=== PATIENT | male | born 1970 | race Asian ===

== ENCOUNTER 2017-11-26 23:08 | Emergency (ER) | payer MEDICARE, MEDICAID ==
[~2017-11-26] VITALS: Ht 160 cm; Wt 63.6 kg
[~2017-11-26 23:08] MED LIST: GABA-530 PO; HYDR-565 PO; LEVO100T PO; METO50TA7 PO; OLAN10TA3 PO; OMEP20CA10 PO; RANI150C4 PO
[2017-11-26 23:26] VITALS: BP 175/115
[2017-11-26 23:51] LABS: CLARITY,URINE CLEAR (Clear); COLOR,URINE YELLOW (Yellow); GLUCOSE, URINE NEGATIVE (Neg); KETONES,URINE NEGATIVE (Neg); LEUKOCYTE ESTERASE ,URINE NEGATIVE (Neg); NITRITES, URINE NEGATIVE (Neg); OCCULT BLOOD,URINE LARGE (Neg); PH,URINE 5.5 (4.8-8.0); PROTEIN,URINE NEGATIVE (Neg); UROBILINOGEN,URINE 0.2 E.U/dL (0.2-1.0)
[2017-11-26 23:52] LABS: UA COLLECTION TYPE CLN CATCH MIDSTREAM
[2017-11-26 23:59] LABS: BACTERIA,URINE NONE SEEN /HPF (Neg); RBC,URINE 50-100 /HPF (0-2); SQUAMOUS EPITHELIAL CELL,UR FEW /LPF (FEW); WBC,URINE 0-4 /HPF (0-4)
[2017-11-27] LABS: MUCUS STRANDS MODERATE /LPF (Neg)
[2017-11-27 01:11] LABS: BASOPHILS % (AUTO) 0.6 % (0-1); EOSINOPHILS # (AUTO) 0.1 X10'3 (0-0.9); EOSINOPHILS % (AUTO) 2.9 % (0-6); HEMATOCRIT 42.4 % (42.0-52.0); HEMOGLOBIN 14.2 g/dl (14.0-17.9); LYMPHOCYTES # (AUTO) 0.7 X10'3 (1.1-4.8); LYMPHOCYTES % (AUTO) 18.7 % (21-51); MEAN CORPUSCULAR HEMOGLOBIN 28.7 PG (27.0-31.0); MEAN CORPUSCULAR HGB CONC 33.5 % (33.0-36.5); MEAN CORPUSCULAR VOLUME 85.9 FL (78-98); MEAN PLATELET VOLUME 8.2 FL (7.4-10.4); MONOCYTES # (AUTO) 0.2 X10'3 (0-0.9); MONOCYTES % (AUTO) 5.9 % (2-12); NEUTROPHILS # (AUTO) 2.9 X10'3 (1.8-7.7); NEUTROPHILS % (AUTO) 71.9 % (42-75); PLATELET COUNT 194 X10'3 (140-440); RED BLOOD COUNT 4.93 X10'6 (4.70-6.10); RED CELL DISTRIBUTION WIDTH 14.1 % (11.5-14.5); WHITE BLOOD COUNT 3.9 X10'3 (4.5-11.0)
[2017-11-27 01:28] LABS: ALANINE AMINOTRANSFERASE 26 U/L (12-78); ALBUMIN 3.2 G/DL (3.4-5.0); ALKALINE PHOSPHATASE 84 IU/L (46-116); ANION GAP 8 (8-16); ASPARTATE AMINO TRANSFERASE 16 U/L (10-37); BILIRUBIN,TOTAL 0.5 MG/DL (0.1-1.0); BLOOD UREA NITROGEN 20 MG/DL (7-18); BUN/CREATININE RATIO 14.3 (5.4-32.0); CALCIUM 8.5 MG/DL (8.5-10.1); CHLORIDE 109 MMOL/L (99-107); ETHANOL < 0.010 GM/DL (0.0-0.010); GLUCOSE 101 MG/DL (70-104); POTASSIUM 3.1 MMOL/L (3.5-5.1); SODIUM 144 MMOL/L (135-145); TOTAL CARBON DIOXIDE 26.7 MMOL/L (24-32); TOTAL PROTEIN 6.5 G/DL (6.4-8.2); eGFR 54 ML/MIN
[2017-11-27 01:44] LABS: URINE AMPHETAMINE SCREEN POSITIVE (Neg); URINE BARBITUATE SCREEN NEGATIVE (Neg); URINE BENZODIAZEPINES SCREEN NEGATIVE (Neg); URINE CANNABINOID SCREEN POSITIVE (Neg); URINE COCAINE SCREEN NEGATIVE (Neg); URINE METHADONE SCREEN NEGATIVE (Neg); URINE OPIATE SCREEN NEGATIVE (Neg); URINE PHENCYCLIDINE SCREEN NEGATIVE (Neg)
== END 2017-11-27 03:03 | disposition home or self-care (01) ==
LOC: ER 23:08
DX: F15.10 Other stimulant abuse, uncomplicated (principal); F12.10 Cannabis abuse, uncomplicated; F41.9 Anxiety disorder, unspecified; I10 Essential (primary) hypertension; K21.9 Gastro-esophageal reflux disease without esophagitis; Z98.890 Other specified postprocedural states; Z88.8 Allergy status to other drugs, medicaments and biological substances; Z79.899 Other long term (current) drug therapy
CPT/HCPCS: 36415; 80053; 80305; 80320; 81001; 85025; 99284

== ENCOUNTER 2018-08-09 14:41 | Inpatient (IN) | payer MEDICARE, MEDICAID | END 2018-08-15 14:35 | disposition home or self-care (01) | LOC: PCU 3S 08-11 10:11 → ER 14:41 → ICU 2S 16:00 | PROC: 4A023N7 Measurement of Cardiac Sampling and Pressure, Left Heart, Percutaneous Approach (ICD-10-PCS; principal; ~2018-08-09) | DX: I21.4 Non-ST elevation (NSTEMI) myocardial infarction (principal); N17.0 Acute kidney failure with tubular necrosis; G93.40 Encephalopathy, unspecified; I16.0 Hypertensive urgency; N18.3 Chronic kidney disease, stage 3 (moderate); F10.20 Alcohol dependence, uncomplicated; F15.90 Other stimulant use, unspecified, uncomplicated ==

== ENCOUNTER 2018-08-25 13:03 | Emergency (ER) | payer MEDICARE, MEDICAID ==
[~2018-08-25] VITALS: Ht 162.6 cm; Wt 68.2 kg
[~2018-08-25 13:03] MED LIST changes: +ASPI81TA52 PO; +ATOR20TA66 PO; +CITA-124 PO; +CLON0.1T20 PO; -GABA-530 PO; +GABA-532 PO; -HYDR-565 PO; +LISI-642 PO; +MAGN400C PO; +NITR0.4T51 SL; +OMEP-50 PO; -OMEP20CA10 PO; -RANI150C4 PO; +RANI150T8 PO; +VITA-268 PO
--- NOTE | 2018-08-25 13:15 | NUR ---
ekg 1307
[2018-08-25 13:16] VITALS: BP 160/98
--- NOTE | 2018-08-25 16:07 | NUR ---
PATIENT LWOBS. ATTEMPTED TO CALL PATIENT TO RETURN TO ER FOR TREATMENT NO ANSWER. VM NOT SET UP
== END 2018-08-25 16:34 | disposition left against medical advice (07) ==
LOC: ER 13:03
DX: R07.89 Other chest pain (principal); Z53.21 Procedure and treatment not carried out due to patient leaving prior to being seen by health care provider
CPT/HCPCS: 93005

== ENCOUNTER 2018-09-06 14:36 | Inpatient (IN) | payer MEDICARE, MEDICAID ==
[~2018-09-06] VITALS: Ht 162.6 cm; Wt 69.0 kg
[2018-09-06] VITALS (11 sets, daily range): BP systolic 131–145; BP diastolic 55–92
[2018-09-06] MEDS ORDERED: pantoprazole IV 80 MG in normal saline 100ml IV soln 100 ML IV ONE (15:40)
[2018-09-06] MEDS ORDERED: pantoprazole 40 MG vial IV ONE (15:43)
[2018-09-06 15:53] LABS: BASOPHILS % (AUTO) 0.9 % (0-1); EOSINOPHILS # (AUTO) 0.1 X10'3 (0-0.9); EOSINOPHILS % (AUTO) 2.3 % (0-6); LYMPHOCYTES # (AUTO) 0.6 X10'3 (1.1-4.8); LYMPHOCYTES % (AUTO) 14.3 % (21-51); MEAN CORPUSCULAR HEMOGLOBIN 27.1 PG (27.0-31.0); MEAN CORPUSCULAR HGB CONC 31.4 g/dL (33.0-36.5); MEAN CORPUSCULAR VOLUME 86.2 FL (78-98); MEAN PLATELET VOLUME 7.7 FL (7.4-10.4); MONOCYTES # (AUTO) 0.3 X10'3 (0-0.9); MONOCYTES % (AUTO) 7.7 % (2-12); NEUTROPHILS # (AUTO) 3.2 X10'3 (1.8-7.7); NEUTROPHILS % (AUTO) 74.8 % (42-75); PLATELET COUNT 220 X10'3 (140-440); RED BLOOD COUNT 1.98 X10'6 (4.70-6.10); RED CELL DISTRIBUTION WIDTH 17.5 % (11.5-14.5); WHITE BLOOD COUNT 4.3 X10'3 (4.5-11.0)
[2018-09-06 15:56] LABS: HEMOGLOBIN 5.3 g/dl (14.0-17.9)
[2018-09-06 15:58] LABS: PROTHROMBIN TIME 9.9 SECONDS (9.0-12.0)
[2018-09-06 16:00] LABS: ALANINE AMINOTRANSFERASE 25 U/L (12-78); ALBUMIN 2.5 G/DL (3.4-5.0); ALBUMIN/GLOBULIN RATIO 0.9 (1.1-1.5); ALKALINE PHOSPHATASE 68 IU/L (46-116); ANION GAP 8 (8-16); ASPARTATE AMINO TRANSFERASE 17 U/L (10-37); BILIRUBIN,TOTAL 0.3 MG/DL (0.1-1.0); BLOOD UREA NITROGEN 22 MG/DL (7-18); CALCIUM 8.3 MG/DL (8.5-10.1); CHLORIDE 108 MMOL/L (99-107); CREATININE 1.57 MG/DL (0.60-1.10); GLUCOSE 111 MG/DL (70-104); POTASSIUM 3.8 MMOL/L (3.5-5.1); SODIUM 141 MMOL/L (135-145); TOTAL CARBON DIOXIDE 24.8 MMOL/L (24-32); TOTAL PROTEIN 5.3 G/DL (6.4-8.2); eGFR 47 ML/MIN
[2018-09-06 16:17] LABS: CLARITY,URINE CLEAR (Clear); COLOR,URINE YELLOW (Yellow); GLUCOSE, URINE NEGATIVE (Neg); KETONES,URINE NEGATIVE (Neg); LEUKOCYTE ESTERASE ,URINE NEGATIVE (Neg); NITRITES, URINE NEGATIVE (Neg); OCCULT BLOOD,URINE NEGATIVE (Neg); PROTEIN,URINE NEGATIVE (Neg); UA COLLECTION TYPE CLN CATCH MIDSTREAM; UROBILINOGEN,URINE 0.2 E.U/dL (0.2-1.0)
[2018-09-06 16:18] LABS: ETHANOL < 0.010 GM/DL (0.0-0.010)
[2018-09-06 16:27] LABS: URINE AMPHETAMINE SCREEN POSITIVE (Neg); URINE BARBITUATE SCREEN NEGATIVE (Neg); URINE BENZODIAZEPINES SCREEN NEGATIVE (Neg); URINE CANNABINOID SCREEN NEGATIVE (Neg); URINE COCAINE SCREEN NEGATIVE (Neg); URINE METHADONE SCREEN NEGATIVE (Neg); URINE OPIATE SCREEN NEGATIVE (Neg); URINE PHENCYCLIDINE SCREEN NEGATIVE (Neg)
[2018-09-06] MEDS: pantoprazole 40MG/NS 100ML BAG 100 ML IV SCH ×2 (16:48→22:19)
[2018-09-06 17:02] LABS: NUCLEATED RED BLOOD CELLS 2 /100WBC (0-0); TOTAL CELLS COUNTED 100
[2018-09-06 17:03] LABS: ANISOCYTOSIS 1+; PLATELET ESTIMATE NORMAL
[2018-09-06 17:04] LABS: HYPOCHROMASIA 2+; POLYCHROMASIA 3+
[2018-09-06] MEDS ORDERED: magnesium 2GM in 50ml NS 50 ML IV PRN (17:10)
[2018-09-06] MEDS ORDERED: bisacodyl 10mg suppository rectal RC PRN (17:10)
[2018-09-06] MEDS ORDERED: potassium Cl 20 mEq SR tablet PO PRN ×2 (17:10)
[2018-09-06] MEDS ORDERED: magnesium 4gm in 100ml NS 100 ML IV PRN (17:10)
[2018-09-06] MEDS ORDERED: acetaminophen 325mg tablet PO PRN (17:10)
[2018-09-06] MEDS ORDERED: magnesium Cl slow-release 64mg tablet PO PRN (17:10)
[2018-09-06] MEDS ORDERED: mag hydrox/Alum hydrox/simeth 30ml oral suspension PO PRN (17:10)
[2018-09-06] MEDS ORDERED: morphine 4 MG/ML inj SYRINge IV PRN ×2 (17:10)
[2018-09-06] MEDS ORDERED: ondansetron/PF 4mg/2ml inj IV PRN (17:10)
[2018-09-06] MEDS ORDERED: HYDROcodone/acetaminophen 10/325mg tab PO PRN (17:10)
[2018-09-06] MEDS ORDERED: HYDROcodone/acetaminophen 5mg/325mg tablet PO PRN (17:10)
[2018-09-06] MEDS ORDERED: magnesium hydroxide 30ml (MOM) UD suspension PO PRN (17:10)
[2018-09-06] MEDS ORDERED: potassium Cl 40MEQ/NS 500ml 500 ML IV PRN ×2 (17:10)
[2018-09-06] MEDS ORDERED: ASPI-611 PO (17:16)
[2018-09-06] MEDS ORDERED: ATOR40TA72 PO (17:18)
[2018-09-06] MEDS ORDERED: CITA20TA27 PO (17:19)
[2018-09-06] MEDS ORDERED: LISI10TA4 PO (17:23)
[2018-09-06] MEDS ORDERED: OLAN10TA19 PO (17:26)
[2018-09-06] MEDS ORDERED: NITR0.4T48 SL (17:27)
--- NOTE | 2018-09-06 18:30 | NUR ---
PT IN GI LAB HAVING PROCEDURE. REPORT GIVEN TO RN ON PCU, PT WILL GO STRAIGHT TO PCU AFTER GI LAB.
[2018-09-06] MEDS ORDERED: fentaNYL/PF 50MCG/1 ML 2ML syringe ONE (18:32)
[2018-09-06] MEDS ORDERED: MIDAZolam 5mg/5ml vial ONE (18:32)
[2018-09-06] MEDS ORDERED: LIDOcaine Viscous 15ml cup ONE (18:33)
[2018-09-06] MEDS ORDERED: pantoprazole 40MG/NS 100ML BAG 100 ML IV SCH (21:00)
--- NOTE | 2018-09-06 21:56 | NUR ---
pt arrived from GI lab. GI lab gave 1 unit [address] per [address] Mahmood to give 2 additional units. GI lab blood paperwork will be on paper. pt was supposed to go to [facility] today at 2 , but ended up here instead. pt wishes to DC straight to rehab if possible. hx of etoh and meth. at bedside who stated pt didnt want to come here but she called EMS anyway. Pt stated it is ok for to be at bedside. voiced her concern and caring over his substance use and wants him to get help.
--- NOTE | 2018-09-06 22:06 | NUR ---
[facility] called back, they still have a bed for him and will try to help get him there from hospital.
[2018-09-06 22:09] LABS: BASOPHILS % (AUTO) 0.7 % (0-1); EOSINOPHILS # (AUTO) 0.1 X10'3 (0-0.9); EOSINOPHILS % (AUTO) 2.4 % (0-6); LYMPHOCYTES % (AUTO) 21.1 % (21-51); MEAN CORPUSCULAR HEMOGLOBIN 26.8 PG (27.0-31.0); MEAN CORPUSCULAR HGB CONC 31.8 g/dL (33.0-36.5); MEAN CORPUSCULAR VOLUME 84.4 FL (78-98); MEAN PLATELET VOLUME 7.4 FL (7.4-10.4); MONOCYTES # (AUTO) 0.4 X10'3 (0-0.9); NEUTROPHILS # (AUTO) 3.2 X10'3 (1.8-7.7); NEUTROPHILS % (AUTO) 67.8 % (42-75); PLATELET COUNT 229 X10'3 (140-440); RED BLOOD COUNT 2.48 X10'6 (4.70-6.10); WHITE BLOOD COUNT 4.7 X10'3 (4.5-11.0)
[2018-09-06 22:17] LABS: HEMOGLOBIN 6.7 g/dl (14.0-17.9)
[2018-09-06] MEDS: potassium Cl 20mEq in NS 1,000 ML IV SCH (22:19)
--- NOTE | 2018-09-06 22:32 | NUR ---
left at pt request. he stated he really wants to go to rehab and would like to go straight from here
[2018-09-06] MEDS: docusate sod 100mg capsule PO SCH (22:45)
[2018-09-07] VITALS (15 sets, daily range): BP systolic 119–158; BP diastolic 67–104
[2018-09-07] MEDS: metoprolol tartrate 25mg tablet PO SCH ×3 (01:42→19:49)
[2018-09-07 02:18] LABS: HEMATOCRIT 23.9 % (42.0-52.0); HEMOGLOBIN 7.7 g/dl (14.0-17.9); MEAN CORPUSCULAR HEMOGLOBIN 27.1 PG (27.0-31.0); MEAN CORPUSCULAR HGB CONC 32.2 g/dL (33.0-36.5); MEAN CORPUSCULAR VOLUME 84.2 FL (78-98); MEAN PLATELET VOLUME 7.4 FL (7.4-10.4); PLATELET COUNT 215 X10'3 (140-440); RED BLOOD COUNT 2.84 X10'6 (4.70-6.10); RED CELL DISTRIBUTION WIDTH 16.1 % (11.5-14.5); WHITE BLOOD COUNT 3.6 X10'3 (4.5-11.0)
[2018-09-07 02:31] LABS: ALANINE AMINOTRANSFERASE 21 U/L (12-78); ALBUMIN 2.4 G/DL (3.4-5.0); ALBUMIN/GLOBULIN RATIO 0.9 (1.1-1.5); ALKALINE PHOSPHATASE 62 IU/L (46-116); ANION GAP 7 (8-16); ASPARTATE AMINO TRANSFERASE 14 U/L (10-37); BILIRUBIN,TOTAL 0.6 MG/DL (0.1-1.0); BLOOD UREA NITROGEN 15 MG/DL (7-18); BUN/CREATININE RATIO 10.3 (5.4-32.0); CALCIUM 7.7 MG/DL (8.5-10.1); CHLORIDE 108 MMOL/L (99-107); CREATININE 1.45 MG/DL (0.60-1.10); GLUCOSE 90 MG/DL (70-104); MAGNESIUM 2.1 MG/DL (1.5-2.4); POTASSIUM 4.2 MMOL/L (3.5-5.1); SODIUM 140 MMOL/L (135-145); TOTAL CARBON DIOXIDE 24.6 MMOL/L (24-32); eGFR 52 ML/MIN
--- NOTE | 2018-09-07 02:50 | NUR ---
h/h up to 7.7/23.9. spoke with Dr. Robles, orders for H/H at 0500 and then decide if 3rd unit needed. no signs active bleed at this time
[2018-09-07] MEDS: pantoprazole 40MG/NS 100ML BAG 100 ML IV SCH ×5 (02:55→23:47)
[2018-09-07] MEDS: potassium Cl 20mEq in NS 1,000 ML IV SCH ×2 (03:09→11:29)
--- NOTE | 2018-09-07 04:48 | NUR ---
pt complains of 8/10 cp. EKG being done
[2018-09-07] MEDS: nitroGLYCERIN 0.4mg SUBLingual tab SL PRN ×3 (04:51→17:11)
--- NOTE | 2018-09-07 05:02 | NUR ---
PT STATED HIS CHEST STILL FEELS TIGHT BUT HE IS BREATHING BETTER AFTER 2 NITRO SL
--- NOTE | 2018-09-07 05:19 | NUR ---
he refused any pain meds. sats ok. notifed
[2018-09-07 06:05] LABS: BASOPHILS % (AUTO) 0.9 % (0-1); EOSINOPHILS # (AUTO) 0.1 X10'3 (0-0.9); EOSINOPHILS % (AUTO) 2.7 % (0-6); HEMATOCRIT 23.1 % (42.0-52.0); HEMOGLOBIN 7.5 g/dl (14.0-17.9); LYMPHOCYTES # (AUTO) 0.8 X10'3 (1.1-4.8); LYMPHOCYTES % (AUTO) 19.5 % (21-51); MEAN CORPUSCULAR HEMOGLOBIN 27.3 PG (27.0-31.0); MEAN CORPUSCULAR HGB CONC 32.3 g/dL (33.0-36.5); MEAN CORPUSCULAR VOLUME 84.3 FL (78-98); MEAN PLATELET VOLUME 7.6 FL (7.4-10.4); MONOCYTES # (AUTO) 0.3 X10'3 (0-0.9); MONOCYTES % (AUTO) 8.2 % (2-12); NEUTROPHILS # (AUTO) 2.8 X10'3 (1.8-7.7); NEUTROPHILS % (AUTO) 68.7 % (42-75); PLATELET COUNT 215 X10'3 (140-440); RED BLOOD COUNT 2.74 X10'6 (4.70-6.10); RED CELL DISTRIBUTION WIDTH 16.5 % (11.5-14.5)
--- NOTE | 2018-09-07 06:15 | NUR ---
Problems reprioritized. Patient report given, questions answered & plan of care reviewed with Monica and Deborah RNs.
--- NOTE | 2018-09-07 06:35 | NUR ---
Patient in room PCU 3027. I have received report from Ghada ROPRE and had the opportunity to ask questions and assume patient care. Patient awake in bed and resting comfortably. In no acute distress. Will continue to monitor.
[2018-09-07 07:08] LABS: TROPONIN I < 0.04 NG/ML (0.0-0.05)
[2018-09-07] MEDS: docusate sod 100mg capsule PO SCH ×2 (08:00→19:48)
[2018-09-07] MEDS: K and/or MAG REPLACEMENT MC SCH (08:00)
--- NOTE | 2018-09-07 08:37 | NUR ---
Patient complains of flank pain and dyspnea. Patient vital signs T: 97.9, HR 67, RR 22, BP 137/92. Stopped blood transfusion and notified Dr. Mahmood. Flushed IV line. Will continue to monitor patient.
[2018-09-07] MEDS ORDERED: furosemide 40mg/4ml inj IV ONE (08:55)
--- NOTE | 2018-09-07 08:58 | NUR ---
New orders from Dr. Mahmood: 40 mg IV lasix once, UA, albuterol 2.5 neb Q4H.
[2018-09-07 09:25] LABS: CLARITY,URINE CLEAR (Clear); COLOR,URINE YELLOW (Yellow); GLUCOSE, URINE NEGATIVE (Neg); KETONES,URINE NEGATIVE (Neg); LEUKOCYTE ESTERASE ,URINE NEGATIVE (Neg); NITRITES, URINE NEGATIVE (Neg); OCCULT BLOOD,URINE NEGATIVE (Neg); PH,URINE 6.5 (4.8-8.0); PROTEIN,URINE NEGATIVE (Neg); UROBILINOGEN,URINE 0.2 E.U/dL (0.2-1.0)
[2018-09-07 09:26] LABS: UA COLLECTION TYPE NON-SPECIFIED
[2018-09-07] MEDS: albuterol 2.5 MG/3 ML nebule NEB SCH ×5 (09:37→23:40)
[2018-09-07 11:42] LABS: BASOPHILS % (AUTO) 0.5 % (0-1); EOSINOPHILS # (AUTO) 0.1 X10'3 (0-0.9); EOSINOPHILS % (AUTO) 1.8 % (0-6); HEMATOCRIT 28.6 % (42.0-52.0); HEMOGLOBIN 9.4 g/dl (14.0-17.9); LYMPHOCYTES # (AUTO) 0.7 X10'3 (1.1-4.8); LYMPHOCYTES % (AUTO) 12.9 % (21-51); MEAN CORPUSCULAR HEMOGLOBIN 27.5 PG (27.0-31.0); MEAN CORPUSCULAR HGB CONC 32.9 g/dL (33.0-36.5); MEAN CORPUSCULAR VOLUME 83.5 FL (78-98); MEAN PLATELET VOLUME 7.6 FL (7.4-10.4); MONOCYTES # (AUTO) 0.4 X10'3 (0-0.9); NEUTROPHILS # (AUTO) 4.1 X10'3 (1.8-7.7); NEUTROPHILS % (AUTO) 77.8 % (42-75); PLATELET COUNT 246 X10'3 (140-440); RED BLOOD COUNT 3.43 X10'6 (4.70-6.10); RED CELL DISTRIBUTION WIDTH 16.6 % (11.5-14.5); WHITE BLOOD COUNT 5.3 X10'3 (4.5-11.0)
--- NOTE | 2018-09-07 12:26 | NUR ---
Paged Dr. Mahmood: PAGER ID: [phone] MESSAGE: Monica RAKEL [phone]. RE: Adalid, [id number]. FYI: Patient Hgb 9.4, Hct 28.6.
[2018-09-07] MEDS ORDERED: olanzapine 10mg tablet PO PRN (12:55)
[2018-09-07] MEDS ORDERED: nitroGLYCERIN 0.4mg SUBLingual tab SL PRN (12:55)
[2018-09-07] MEDS: gabapentin 300mg capsule PO SCH ×2 (14:39→19:48)
--- NOTE | 2018-09-07 17:08 | NUR ---
Paged Dr. Mahmood: PAGER ID: [phone] MESSAGE: Monica Diane [phone]. RE: Adalid, Her [id number]. Patient complains of new onset chest pain 01/14. Administering S/L nitro now. EKG last night was negative. Would you like a repeat EKG ordered? Last troponin 0.04. Thank you Dr. Mahmood
--- NOTE | 2018-09-07 18:30 | NUR ---
Problems reprioritized. Patient report given, questions answered & plan of care reviewed with Arianna ROPER.
[2018-09-07] MEDS: furosemide 20 MG/2 ML vial IV SCH (19:48)
[2018-09-07] MEDS: cloNIDine 0.1 mg tablet PO SCH (19:49)
[2018-09-07] MEDS: nitroGLYCERIN 0.2mg/hour patch TD SCH (19:49)
[2018-09-07 20:50] LABS: BASOPHILS % (AUTO) 0.9 % (0-1); EOSINOPHILS # (AUTO) 0.1 X10'3 (0-0.9); EOSINOPHILS % (AUTO) 2.6 % (0-6); LYMPHOCYTES # (AUTO) 0.7 X10'3 (1.1-4.8); LYMPHOCYTES % (AUTO) 14.9 % (21-51); MEAN CORPUSCULAR HEMOGLOBIN 27.2 PG (27.0-31.0); MEAN CORPUSCULAR HGB CONC 32.3 g/dL (33.0-36.5); MEAN CORPUSCULAR VOLUME 84.2 FL (78-98); MEAN PLATELET VOLUME 7.8 FL (7.4-10.4); MONOCYTES # (AUTO) 0.4 X10'3 (0-0.9); MONOCYTES % (AUTO) 7.4 % (2-12); NEUTROPHILS # (AUTO) 3.6 X10'3 (1.8-7.7); NEUTROPHILS % (AUTO) 74.2 % (42-75); PLATELET COUNT 222 X10'3 (140-440); RED BLOOD COUNT 3.68 X10'6 (4.70-6.10); RED CELL DISTRIBUTION WIDTH 16.5 % (11.5-14.5); WHITE BLOOD COUNT 4.8 X10'3 (4.5-11.0)
[2018-09-08] VITALS (8 sets, daily range): BP systolic 92–115; BP diastolic 57–82
[2018-09-08] MEDS: pantoprazole 40MG/NS 100ML BAG 100 ML IV SCH ×5 (01:00→21:26)
[2018-09-08] MEDS: albuterol 2.5 MG/3 ML nebule NEB SCH ×6 (03:06→23:51)
[2018-09-08 05:43] LABS: EOSINOPHILS # (AUTO) 0.1 X10'3 (0-0.9); EOSINOPHILS % (AUTO) 3.6 % (0-6); HEMATOCRIT 29.7 % (42.0-52.0); HEMOGLOBIN 9.4 g/dl (14.0-17.9); LYMPHOCYTES # (AUTO) 0.6 X10'3 (1.1-4.8); LYMPHOCYTES % (AUTO) 15.8 % (21-51); MEAN CORPUSCULAR HEMOGLOBIN 26.5 PG (27.0-31.0); MEAN CORPUSCULAR HGB CONC 31.7 g/dL (33.0-36.5); MEAN CORPUSCULAR VOLUME 83.5 FL (78-98); MEAN PLATELET VOLUME 7.7 FL (7.4-10.4); MONOCYTES # (AUTO) 0.4 X10'3 (0-0.9); MONOCYTES % (AUTO) 10.5 % (2-12); NEUTROPHILS # (AUTO) 2.5 X10'3 (1.8-7.7); NEUTROPHILS % (AUTO) 69.1 % (42-75); PLATELET COUNT 243 X10'3 (140-440); RED BLOOD COUNT 3.56 X10'6 (4.70-6.10); RED CELL DISTRIBUTION WIDTH 16.2 % (11.5-14.5); WHITE BLOOD COUNT 3.6 X10'3 (4.5-11.0)
[2018-09-08 06:03] LABS: ALANINE AMINOTRANSFERASE 21 U/L (12-78); ALBUMIN 2.7 G/DL (3.4-5.0); ALBUMIN/GLOBULIN RATIO 0.9 (1.1-1.5); ALKALINE PHOSPHATASE 67 IU/L (46-116); ANION GAP 8 (8-16); ASPARTATE AMINO TRANSFERASE 12 U/L (10-37); BILIRUBIN,TOTAL 0.6 MG/DL (0.1-1.0); BLOOD UREA NITROGEN 19 MG/DL (7-18); CALCIUM 8.4 MG/DL (8.5-10.1); CHLORIDE 106 MMOL/L (99-107); CREATININE 1.73 MG/DL (0.60-1.10); GLUCOSE 152 MG/DL (70-104); MAGNESIUM 2.4 MG/DL (1.5-2.4); POTASSIUM 3.5 MMOL/L (3.5-5.1); SODIUM 139 MMOL/L (135-145); TOTAL CARBON DIOXIDE 25.2 MMOL/L (24-32); TOTAL PROTEIN 5.8 G/DL (6.4-8.2); TROPONIN I < 0.04 NG/ML (0.0-0.05); eGFR 42 ML/MIN
--- NOTE | 2018-09-08 06:30 | NUR ---
Patient in room PCU 3027. I have received report from Kasie ROPER and had the opportunity to ask questions and assume patient care.
[2018-09-08 06:41] LABS: ANISOCYTOSIS 1+; NUCLEATED RED BLOOD CELLS 5 /100WBC (0-0); PLATELET ESTIMATE NORMAL; TOTAL CELLS COUNTED 100
[2018-09-08 06:42] LABS: POLYCHROMASIA 1+
[2018-09-08] MEDS: gabapentin 300mg capsule PO SCH ×3 (07:38→21:27)
[2018-09-08] MEDS: docusate sod 100mg capsule PO SCH ×2 (07:38→21:26)
[2018-09-08] MEDS: magnesium oxide 400mg tablet PO SCH (07:38)
[2018-09-08] MEDS: citalopram 20mg tablet PO SCH (07:39)
[2018-09-08] MEDS: levoTHYROXINE 100mcg tablet PO SCH (07:39)
[2018-09-08] MEDS: vitamin B comp w/Vit. C tab 1 TAB TABLET PO SCH (07:39)
[2018-09-08] MEDS: atorvastatin 20mg tablet PO SCH (07:40)
[2018-09-08] MEDS: cloNIDine 0.1 mg tablet PO SCH (07:41)
[2018-09-08] MEDS: furosemide 20 MG/2 ML vial IV SCH ×2 (07:48→21:27)
[2018-09-08] MEDS: metoprolol tartrate 25mg tablet PO SCH ×2 (07:48→20:00)
[2018-09-08] MEDS: lisinopril 10 MG tablet PO SCH (07:48)
[2018-09-08] MEDS: nitroGLYCERIN 0.2mg/hour patch TD SCH (08:00)
[2018-09-08] MEDS: K and/or MAG REPLACEMENT MC SCH (08:00)
[2018-09-08] MEDS ORDERED: non-formulary drug (Atorvastatin Calcium 1 TAB) PO SCH (08:00)
[2018-09-08] MEDS ORDERED: non-formulary drug (Magnesium Oxide (Magnesium) 1 CAP) PO SCH (08:00)
[2018-09-08] MEDS ORDERED: non-formulary drug (Vitamin B Complex (B Complex) 1 EACH) PO SCH (08:00)
--- NOTE | 2018-09-08 08:28 | NUR ---
pt complaining of chest pain. BP 119/81 HR 65. 12 lead EKG ordered. Consulted Anna Orellana of possible STEMI. Faxed current and past EKG to pharmacy laboratory technician for review by Juliana. Will continue to monitor.
[2018-09-08] MEDS: nitroGLYCERIN 0.4mg SUBLingual tab SL PRN (09:08)
--- NOTE | 2018-09-08 09:13 | NUR ---
reported CP 6/10. NTG SL given; CP alleviated.
[2018-09-08] MEDS: nitroGLYCERIN 0.4mg/hour patch TD SCH (11:45)
--- NOTE | 2018-09-08 11:46 | NUR ---
clarified orders with Dr Mahmood. Removed NTG patch this AM. New order to place new NTG patch now. Dr. Mahmood said to place new patch now.
--- NOTE | 2018-09-08 13:46 | NUR ---
pt complained of headache and dizziness. checked BP and SBP was in the 80s; removed NTG patch. will continue to monitor.
--- NOTE | 2018-09-08 15:33 | NUR ---
PAGER ID: [phone] MESSAGE: Adalid, Her rm [id number]. pt's is at bedside and would like to speak with you. thank you Bobby ROPER ext [phone]
--- NOTE | 2018-09-08 18:24 | NUR ---
Problems reprioritized. Patient report given, questions answered & plan of care reviewed with Aliza ROPER.
--- NOTE | 2018-09-08 18:28 | NUR ---
Patient in room PCU 3027. I have received report from Mariposa ROPER and had the opportunity to ask questions and assume patient care.
--- NOTE | 2018-09-08 20:10 | NUR ---
pt refused respiratory treatment due to nausea. Pt stated that he vomitted in the morning 4/4 during AM respiratory tx
--- NOTE | 2018-09-08 21:30 | NUR ---
held lopressor, HR 55
[2018-09-09] VITALS (8 sets, daily range): BP systolic 80–117; BP diastolic 50–77
[2018-09-09] MEDS: pantoprazole 40MG/NS 100ML BAG 100 ML IV SCH ×3 (02:29→10:16)
[2018-09-09] MEDS: albuterol 2.5 MG/3 ML nebule NEB SCH ×3 (03:01→11:51)
[2018-09-09 05:56] LABS: BASOPHILS % (AUTO) 1.2 % (0-1); EOSINOPHILS # (AUTO) 0.2 X10'3 (0-0.9); HEMATOCRIT 33.2 % (42.0-52.0); HEMOGLOBIN 10.5 g/dl (14.0-17.9); LYMPHOCYTES # (AUTO) 1.1 X10'3 (1.1-4.8); LYMPHOCYTES % (AUTO) 28.2 % (21-51); MEAN CORPUSCULAR HEMOGLOBIN 26.3 PG (27.0-31.0); MEAN CORPUSCULAR HGB CONC 31.6 g/dL (33.0-36.5); MEAN CORPUSCULAR VOLUME 83.3 FL (78-98); MEAN PLATELET VOLUME 7.9 FL (7.4-10.4); MONOCYTES # (AUTO) 0.4 X10'3 (0-0.9); MONOCYTES % (AUTO) 10.1 % (2-12); NEUTROPHILS # (AUTO) 2.2 X10'3 (1.8-7.7); NEUTROPHILS % (AUTO) 56.5 % (42-75); PLATELET COUNT 253 X10'3 (140-440); RED BLOOD COUNT 3.99 X10'6 (4.70-6.10); RED CELL DISTRIBUTION WIDTH 16.5 % (11.5-14.5); WHITE BLOOD COUNT 3.8 X10'3 (4.5-11.0)
[2018-09-09 06:04] LABS: ALANINE AMINOTRANSFERASE 26 U/L (12-78); ALBUMIN/GLOBULIN RATIO 0.9 (1.1-1.5); ALKALINE PHOSPHATASE 72 IU/L (46-116); ANION GAP 8 (8-16); ASPARTATE AMINO TRANSFERASE 17 U/L (10-37); BILIRUBIN,TOTAL 0.8 MG/DL (0.1-1.0); BLOOD UREA NITROGEN 18 MG/DL (7-18); BUN/CREATININE RATIO 10.8 (5.4-32.0); CALCIUM 8.8 MG/DL (8.5-10.1); CHLORIDE 105 MMOL/L (99-107); CREATININE 1.67 MG/DL (0.60-1.10); GLUCOSE 104 MG/DL (70-104); MAGNESIUM 2.3 MG/DL (1.5-2.4); POTASSIUM 3.9 MMOL/L (3.5-5.1); SODIUM 140 MMOL/L (135-145); TOTAL CARBON DIOXIDE 26.8 MMOL/L (24-32); TOTAL PROTEIN 6.5 G/DL (6.4-8.2); eGFR 44 ML/MIN
--- NOTE | 2018-09-09 06:29 | NUR ---
Patient in room PCU 3027. I have received report from [facility] and had the opportunity to ask questions and assume patient care.
--- NOTE | 2018-09-09 06:36 | NUR ---
Problems reprioritized. Patient report given, questions answered & plan of care reviewed with Alaina ROPER.
[2018-09-09] MEDS: furosemide 20 MG/2 ML vial IV SCH (07:59)
[2018-09-09] MEDS: nitroGLYCERIN 0.4mg/hour patch TD SCH (08:00)
[2018-09-09] MEDS: citalopram 20mg tablet PO SCH (08:00)
[2018-09-09] MEDS: K and/or MAG REPLACEMENT MC SCH (08:00)
[2018-09-09] MEDS: atorvastatin 20mg tablet PO SCH (08:00)
[2018-09-09] MEDS: metoprolol tartrate 25mg tablet PO SCH (08:00)
[2018-09-09] MEDS: lisinopril 10 MG tablet PO SCH (08:00)
[2018-09-09] MEDS: docusate sod 100mg capsule PO SCH ×2 (08:00→20:50)
[2018-09-09] MEDS: levoTHYROXINE 100mcg tablet PO SCH (08:00)
[2018-09-09] MEDS: magnesium oxide 400mg tablet PO SCH (08:00)
[2018-09-09] MEDS: gabapentin 300mg capsule PO SCH ×3 (08:01→20:50)
[2018-09-09] MEDS: vitamin B comp w/Vit. C tab 1 TAB TABLET PO SCH (08:01)
--- NOTE | 2018-09-09 13:24 | NUR ---
BP 87/50. Nitro patch dc'd. Pt states feels dizzy. Dr Mahmood paged. 500ml bolus of NS given. BP now up to 94/55, pt stating he feels much better. Started on heart healthy diet and meds adjusted by Dr Mahmood.
--- NOTE | 2018-09-09 18:05 | NUR ---
Problems reprioritized. Patient report given, questions answered & plan of care reviewed with Aliza.
--- NOTE | 2018-09-09 18:16 | NUR ---
Patient in room U 3027. I have received report from Alaina ROPER and had the opportunity to ask questions and assume patient care. Addendum: 09/09/18 at 1816 by Aliza Abdalla RN pt eating dinner, AAO, talking on the phone, SL
[2018-09-09] MEDS: pantoprazole 40 MG vial IV SCH (20:47)
[2018-09-09] MEDS: metoprolol tartrate 12.5mg (1/2 tablet) PO SCH (20:49)
[2018-09-10] VITALS (9 sets, daily range): BP systolic 86–123; BP diastolic 54–81
--- NOTE | 2018-09-10 06:14 | NUR ---
Problems reprioritized. Patient report given, questions answered & plan of care reviewed with KHAI ROPER .
--- NOTE | 2018-09-10 06:21 | NUR ---
Patient in room PCU 3027. I have received report from JUDSON Abrams and had the opportunity to ask questions and assume patient care. Pt resting in bed, watching TV, states no needs at this time. Stable condition.
[2018-09-10] MEDS: K and/or MAG REPLACEMENT MC SCH (06:38)
[2018-09-10 06:43] LABS: BASOPHILS % (AUTO) 0.8 % (0-1); EOSINOPHILS # (AUTO) 0.2 X10'3 (0-0.9); EOSINOPHILS % (AUTO) 3.9 % (0-6); HEMATOCRIT 29.6 % (42.0-52.0); HEMOGLOBIN 9.6 g/dl (14.0-17.9); LYMPHOCYTES # (AUTO) 1.4 X10'3 (1.1-4.8); LYMPHOCYTES % (AUTO) 28.8 % (21-51); MEAN CORPUSCULAR HEMOGLOBIN 26.8 PG (27.0-31.0); MEAN CORPUSCULAR HGB CONC 32.5 g/dL (33.0-36.5); MEAN CORPUSCULAR VOLUME 82.4 FL (78-98); MONOCYTES # (AUTO) 0.4 X10'3 (0-0.9); NEUTROPHILS # (AUTO) 2.7 X10'3 (1.8-7.7); NEUTROPHILS % (AUTO) 57.5 % (42-75); PLATELET COUNT 233 X10'3 (140-440); RED CELL DISTRIBUTION WIDTH 16.4 % (11.5-14.5); WHITE BLOOD COUNT 4.7 X10'3 (4.5-11.0)
[2018-09-10 06:51] LABS: ALANINE AMINOTRANSFERASE 30 U/L (12-78); ALBUMIN 2.6 G/DL (3.4-5.0); ALBUMIN/GLOBULIN RATIO 0.9 (1.1-1.5); ALKALINE PHOSPHATASE 79 IU/L (46-116); ANION GAP 8 (8-16); ASPARTATE AMINO TRANSFERASE 15 U/L (10-37); BILIRUBIN,TOTAL 0.5 MG/DL (0.1-1.0); BLOOD UREA NITROGEN 33 MG/DL (7-18); BUN/CREATININE RATIO 16.3 (5.4-32.0); CALCIUM 8.3 MG/DL (8.5-10.1); CHLORIDE 107 MMOL/L (99-107); CREATININE 2.03 MG/DL (0.60-1.10); GLUCOSE 116 MG/DL (70-104); MAGNESIUM 2.3 MG/DL (1.5-2.4); POTASSIUM 3.8 MMOL/L (3.5-5.1); SODIUM 141 MMOL/L (135-145); TOTAL CARBON DIOXIDE 26.1 MMOL/L (24-32); TOTAL PROTEIN 5.6 G/DL (6.4-8.2); eGFR 35 ML/MIN
[2018-09-10] MEDS: pantoprazole 40 MG vial IV SCH (07:43)
[2018-09-10] MEDS: vitamin B comp w/Vit. C tab 1 TAB TABLET PO SCH (07:46)
[2018-09-10] MEDS: atorvastatin 20mg tablet PO SCH (07:46)
[2018-09-10] MEDS: gabapentin 300mg capsule PO SCH ×3 (07:46→20:22)
[2018-09-10] MEDS: metoprolol tartrate 12.5mg (1/2 tablet) PO SCH ×2 (07:47→20:22)
[2018-09-10] MEDS: levoTHYROXINE 100mcg tablet PO SCH (07:47)
[2018-09-10] MEDS: magnesium oxide 400mg tablet PO SCH (07:47)
[2018-09-10] MEDS: citalopram 20mg tablet PO SCH (07:47)
[2018-09-10] MEDS: docusate sod 100mg capsule PO SCH ×2 (07:47→20:22)
[2018-09-10] MEDS ORDERED: lisinopril 2.5mg tablet PO SCH (08:00)
--- NOTE | 2018-09-10 12:15 | NUR ---
Initial: Pt admit with upper GIB. Pt s/p EGD but the stomach was full of food and found gastritis, pt to get repeat EGD and colonoscopy as outpatient per MD notes. Pt previously on liquid diet with recent advancement to heart healthy. Documented PO intake 75-100% meeting nutrient needs. LBM 4/. No edema or wounds. No nutrition diagnosis at this time. Will continue to follow. Recommendations: 1) Continue heart healthy diet 2) Wt per rx Addendum: 09/10/18 at [address] Amended: Links added.
--- NOTE | 2018-09-10 16:29 | NUR ---
PAGER ID: [phone] MESSAGE: [id number] Pardeep Cordoba. 0mL residual s/p void. JUDSON Carroll 0134
[2018-09-10] MEDS: Potassium Cl inj 20 MEQ in normal saline 1000ml 990 ML IV SCH ×2 (16:38→18:15)
--- NOTE | 2018-09-10 16:50 | NUR ---
PAGER ID: [phone] MESSAGE: [id number] Jed Cordoba Read in your note you wanted NS @70/hr, current order is for NS with 20mEq of K @60. Please advise, thank you. JUDSON Carroll [id number] Addendum: 09/10/18 at 1823 by Mariajose Mann RN No new MD orders after contact, implementing eMAR orders as prescribed. Pt serum potassium 3.8 this AM.
--- NOTE | 2018-09-10 18:20 | NUR ---
Problems reprioritized. Patient report given, questions answered & plan of care reviewed with JUDSON Abrams.
[2018-09-10] MEDS: pantoprazole 40mg Tablet.DR PO SCH (20:22)
[2018-09-11 03:00] VITALS: BP 113/74
--- NOTE | 2018-09-11 06:29 | NUR ---
Problems reprioritized. Patient report given, questions answered & plan of care reviewed with Dawn ROPER.
[2018-09-11 06:37] LABS: BASOPHILS % (AUTO) 1.2 % (0-1); EOSINOPHILS # (AUTO) 0.2 X10'3 (0-0.9); EOSINOPHILS % (AUTO) 4.4 % (0-6); HEMOGLOBIN 9.6 g/dl (14.0-17.9); LYMPHOCYTES # (AUTO) 1.4 X10'3 (1.1-4.8); LYMPHOCYTES % (AUTO) 35.6 % (21-51); MEAN CORPUSCULAR HEMOGLOBIN 26.9 PG (27.0-31.0); MEAN CORPUSCULAR VOLUME 83.9 FL (78-98); MEAN PLATELET VOLUME 8.2 FL (7.4-10.4); MONOCYTES # (AUTO) 0.3 X10'3 (0-0.9); MONOCYTES % (AUTO) 8.6 % (2-12); NEUTROPHILS % (AUTO) 50.2 % (42-75); PLATELET COUNT 202 X10'3 (140-440); RED BLOOD COUNT 3.57 X10'6 (4.70-6.10); RED CELL DISTRIBUTION WIDTH 16.3 % (11.5-14.5)
--- NOTE | 2018-09-11 06:37 | NUR ---
Patient in room PCU 3027. I have received report from Aliza ROPER and had the opportunity to ask questions and assume patient care.
[2018-09-11 06:57] LABS: ALANINE AMINOTRANSFERASE 22 U/L (12-78); ALBUMIN 2.6 G/DL (3.4-5.0); ALBUMIN/GLOBULIN RATIO 0.8 (1.1-1.5); ALKALINE PHOSPHATASE 75 IU/L (46-116); ANION GAP 6 (8-16); ASPARTATE AMINO TRANSFERASE 24 U/L (10-37); BILIRUBIN,TOTAL 0.3 MG/DL (0.1-1.0); BLOOD UREA NITROGEN 30 MG/DL (7-18); BUN/CREATININE RATIO 19.1 (5.4-32.0); CALCIUM 8.8 MG/DL (8.5-10.1); CHLORIDE 111 MMOL/L (99-107); CREATININE 1.57 MG/DL (0.60-1.10); GLUCOSE 96 MG/DL (70-104); MAGNESIUM 2.2 MG/DL (1.5-2.4); POTASSIUM 4.8 MMOL/L (3.5-5.1); SODIUM 143 MMOL/L (135-145); TOTAL CARBON DIOXIDE 26.1 MMOL/L (24-32); TOTAL PROTEIN 5.7 G/DL (6.4-8.2); eGFR 47 ML/MIN
[2018-09-11] MEDS: K and/or MAG REPLACEMENT MC SCH (07:13)
[2018-09-11 07:57] VITALS: BP 145/87
[2018-09-11] MEDS: pantoprazole 40mg Tablet.DR PO SCH (08:53)
[2018-09-11 08:54] VITALS: BP_SYST 145
[2018-09-11] MEDS: atorvastatin 20mg tablet PO SCH (08:54)
[2018-09-11] MEDS: levoTHYROXINE 100mcg tablet PO SCH (08:54)
[2018-09-11] MEDS: gabapentin 300mg capsule PO SCH (08:54)
[2018-09-11] MEDS: metoprolol tartrate 12.5mg (1/2 tablet) PO SCH (08:54)
[2018-09-11] MEDS: citalopram 20mg tablet PO SCH (08:54)
[2018-09-11] MEDS: vitamin B comp w/Vit. C tab 1 TAB TABLET PO SCH (08:54)
[2018-09-11] MEDS: magnesium oxide 400mg tablet PO SCH (08:54)
[2018-09-11] MEDS: docusate sod 100mg capsule PO SCH (08:54)
[2018-09-11] MEDS: Potassium Cl inj 20 MEQ in normal saline 1000ml 990 ML IV SCH (08:55)
[2018-09-11] MEDS ORDERED: METO25TA6 PO (10:50)
[2018-09-11] MEDS ORDERED: PANT40TA4 PO (10:50)
[2018-09-11] MEDS ORDERED: FERR325T32 PO (10:50)
--- NOTE | 2018-09-11 11:40 | NUR ---
Psatient is discharged on nursing end. Patient is waiting for a ride from family. Medications called into pharmacy on record. Patient eduction provided, IV discontinued intact. A&O x4. VSS Addendum: 09/11/18 at 1146 by Dawn Felipe RN Both MDs numbers provided to patient on education packet for follow up appointments.
== END 2018-09-11 12:04 | disposition home or self-care (01) | DRG 377 ==
LOC: ER 14:37 → ED HOLD 17:09 → PCU 3S 20:01
PROVIDERS: ADMIT Internal Medicine; ATTEND Internal Medicine
PROC: 0DJ08ZZ Inspection of Upper Intestinal Tract, Via Natural or Artificial Opening Endoscopic (ICD-10-PCS; principal; 2018-09-06)
PROC: 30233N1 Transfusion of Nonautologous Red Blood Cells into Peripheral Vein, Percutaneous Approach (ICD-10-PCS; 2018-09-06)
PROC: 30233N1 Transfusion of Nonautologous Red Blood Cells into Peripheral Vein, Percutaneous Approach (ICD-10-PCS; 2018-09-07)
DX: K29.71 Gastritis, unspecified, with bleeding (principal); G93.41 Metabolic encephalopathy; I21.4 Non-ST elevation (NSTEMI) myocardial infarction; D62 Acute posthemorrhagic anemia; N17.9 Acute kidney failure, unspecified; N18.3 Chronic kidney disease, stage 3 (moderate); I12.9 Hypertensive chronic kidney disease with stage 1 through stage 4 chronic kidney disease, or unspecified chronic kidney disease; E03.9 Hypothyroidism, unspecified; F15.10 Other stimulant abuse, uncomplicated; F43.10 Post-traumatic stress disorder, unspecified; G89.4 Chronic pain syndrome; K21.9 Gastro-esophageal reflux disease without esophagitis; M48.00 Spinal stenosis, site unspecified; I95.9 Hypotension, unspecified; M10.9 Gout, unspecified; F32.9 Major depressive disorder, single episode, unspecified; F41.9 Anxiety disorder, unspecified; M54.9 Dorsalgia, unspecified; Z79.82 Long term (current) use of aspirin; Z91.041 Radiographic dye allergy status; Z91.013 Allergy to seafood; Z79.899 Other long term (current) drug therapy; Z79.890 Hormone replacement therapy; Z87.11 Personal history of peptic ulcer disease; Z91.14 Patient's other noncompliance with medication regimen; Z71.51 Drug abuse counseling and surveillance of drug abuser
CPT/HCPCS: 36415; 71045; 80053; 80305; 80320; 81003; 82140; 83735; 84443; 84484; 85025; 85027; 85610; 86880; 86885; 86900; 86901; 86920; 87070; 93005; 94640; 94760; 96374; 97116; 97161; 97530; 99152; 99291; A4620; C9113; G0378; J1940; J2250; J2270; J2405; J3010; J3480; J7030; P9016

== ENCOUNTER 2019-05-09 17:27 | Inpatient (IN) | payer MEDICAID, MEDICARE ==
[~2019-05-09] VITALS: Ht 162.6 cm; Wt 68.0 kg
[~2019-05-09 17:27] MED LIST changes: -ASPI81TA52 PO; -ATOR20TA66 PO; +ATOR40TA72 PO; -CITA-124 PO; +CITA20TA27 PO; -CLON0.1T20 PO; +FERR325T32 PO; -LISI-642 PO; +METO25TA6 PO; -METO50TA7 PO; +NITR0.4T48 SL; -NITR0.4T51 SL; +OLAN10TA19 PO; -OLAN10TA3 PO; -OMEP-50 PO; +PANT40TA4 PO; -RANI150T8 PO
[2019-05-09] MEDS ORDERED: nitroGLYCERIN 0.4mg/hour patch TD ONE (17:45)
[2019-05-09] MEDS ORDERED: enalaprilat dihydrate 2.5mg/2ml vial IV ONE (17:45)
[2019-05-09 18:01] LABS: ALANINE AMINOTRANSFERASE 10 U/L (12-78); ALBUMIN 3.5 G/DL (3.4-5.0); ALKALINE PHOSPHATASE 64 IU/L (46-116); ANION GAP 10 (8-16); ASPARTATE AMINO TRANSFERASE 13 U/L (10-37); BILIRUBIN,TOTAL 0.5 MG/DL (0.1-1.0); BLOOD UREA NITROGEN 30 MG/DL (7-18); CHLORIDE 108 MMOL/L (99-107); GLUCOSE 89 MG/DL (70-104); POTASSIUM 3.7 MMOL/L (3.5-5.1); SODIUM 143 MMOL/L (135-145); TOTAL CARBON DIOXIDE 24.9 MMOL/L (24-32); TOTAL PROTEIN 6.9 G/DL (6.4-8.2); eGFR 50 ML/MIN
[2019-05-09 18:02] LABS: BASOPHILS % (AUTO) 0.5 % (0-1); EOSINOPHILS # (AUTO) 0.2 X10'3 (0-0.9); EOSINOPHILS % (AUTO) 2.9 % (0-6); HEMATOCRIT 42.9 % (42.0-52.0); HEMOGLOBIN 14.3 g/dl (14.0-17.9); LYMPHOCYTES # (AUTO) 1.7 X10'3 (1.1-4.8); LYMPHOCYTES % (AUTO) 22.5 % (21-51); MEAN CORPUSCULAR HEMOGLOBIN 27.2 PG (27.0-31.0); MEAN CORPUSCULAR HGB CONC 33.3 g/dL (33.0-36.5); MEAN CORPUSCULAR VOLUME 81.7 FL (78-98); MEAN PLATELET VOLUME 8.4 FL (7.4-10.4); MONOCYTES # (AUTO) 0.5 X10'3 (0-0.9); MONOCYTES % (AUTO) 6.5 % (2-12); NEUTROPHILS # (AUTO) 5.1 X10'3 (1.8-7.7); NEUTROPHILS % (AUTO) 67.6 % (42-75); PLATELET COUNT 173 X10'3 (140-440); RED BLOOD COUNT 5.25 X10'6 (4.70-6.10); RED CELL DISTRIBUTION WIDTH 16.4 % (11.5-14.5); WHITE BLOOD COUNT 7.5 X10'3 (4.5-11.0)
[2019-05-09 18:08] LABS: CALCIUM 8.4 MG/DL (8.5-10.1)
--- NOTE | 2019-05-09 18:22 | NUR ---
DR GLEASON INFORMED NITRO PATCH AND MEDICATIONS GIVEN AND BLOOD PRESSURE IS 172/88
[2019-05-09] MEDS ORDERED: LISI10TA4 PO (18:54)
[2019-05-09] MEDS ORDERED: TRIA15OI9 TOP (18:55)
[2019-05-09] MEDS ORDERED: METO25TA6 PO (18:56)
[2019-05-09] MEDS ORDERED: PANT-47 PO (18:57)
--- NOTE | 2019-05-09 18:59 | NUR ---
Note omairaone in EDM - 05/09/19 at 1904 by DREA Pt moderately somnolent. He responds to touch without much stimulation. Pt AOX2. Reassurance provided who was concerned because of sounds pt made while breathing. NC had been moved to mouth ar startm of shift d/t pt being a mouth breather when asleep.
[2019-05-09 19:01] LABS: ETHANOL < 0.010 GM/DL (0.0-0.010)
--- NOTE | 2019-05-09 21:43 | NUR ---
PATIENT C/O OF ALL OVER CEBALLOS: MODERATE: SPOKE WITH MD BLANDON: ORDERS RECEIVED
[2019-05-09] MEDS ORDERED: acetaminophen 325mg tablet PO ONE (21:45)
[2019-05-09 21:57] LABS: URINE AMPHETAMINE SCREEN NEGATIVE (Neg); URINE BARBITUATE SCREEN NEGATIVE (Neg); URINE BENZODIAZEPINES SCREEN NEGATIVE (Neg); URINE CANNABINOID SCREEN NEGATIVE (Neg); URINE COCAINE SCREEN NEGATIVE (Neg); URINE METHADONE SCREEN NEGATIVE (Neg); URINE OPIATE SCREEN NEGATIVE (Neg); URINE PHENCYCLIDINE SCREEN NEGATIVE (Neg)
--- NOTE | 2019-05-09 22:43 | NUR ---
Discussed pt's BP with SAEID Harding; new orders received for amlodipine
[2019-05-09] MEDS ORDERED: amLODIPine 5mg tablet PO ONE (22:45)
[2019-05-09] MEDS ORDERED: normal saline 1000ml 1,000 ML IV SCH (23:41)
[2019-05-09] MEDS ORDERED: regadenoson 0.4mg/5ml syringe IV PRN (23:45)
[2019-05-09] MEDS ORDERED: metoprolol tartrate 1mg/ml inj IV PRN (23:45)
[2019-05-09] MEDS ORDERED: magnesium hydroxide 30ml (MOM) UD suspension PO PRN (23:45)
[2019-05-09] MEDS ORDERED: aminophylline 250mg/10ml inj. IV PRN (23:45)
[2019-05-09] MEDS ORDERED: ondansetron/PF 4mg/2ml inj IV PRN (23:45)
[2019-05-09] MEDS ORDERED: mag hydrox/Alum hydrox/simeth 30ml oral suspension PO PRN (23:45)
[2019-05-09] MEDS ORDERED: olanzapine 10mg tablet PO PRN (23:45)
[2019-05-09] MEDS ORDERED: nitroGLYCERIN 0.4mg SUBLingual tab SL PRN ×2 (23:45)
[2019-05-10] VITALS (25 sets, daily range): BP systolic 116–200; BP diastolic 82–127
--- NOTE | 2019-05-10 00:15 | NUR ---
pt arrived to PCU unit on gurney from ED. pt ambulated from [facility] to bed. pt is alert and oriented. pt complains of chest pain on R side that radiates down and back to the posterior back of the right side. pt does not seem to be in any respiratory distress at this moment. oxygen saturation is 96% on RA. will continue to monitor pt
--- NOTE | 2019-05-10 06:14 | NUR ---
Patient in room PCU 3026. I have received report from JUDSON Connor and had the opportunity to ask questions and assume patient care.
--- NOTE | 2019-05-10 06:14 | NUR ---
Problems reprioritized. Patient report given, questions answered & plan of care reviewed with Orquidea ROPER.
[2019-05-10 06:23] LABS: BASOPHILS % (AUTO) 0.7 % (0-1); EOSINOPHILS # (AUTO) 0.2 X10'3 (0-0.9); EOSINOPHILS % (AUTO) 3.3 % (0-6); HEMATOCRIT 41.1 % (42.0-52.0); HEMOGLOBIN 13.7 g/dl (14.0-17.9); LYMPHOCYTES # (AUTO) 1.2 X10'3 (1.1-4.8); MEAN CORPUSCULAR HEMOGLOBIN 27.1 PG (27.0-31.0); MEAN CORPUSCULAR HGB CONC 33.4 g/dL (33.0-36.5); MEAN CORPUSCULAR VOLUME 81.2 FL (78-98); MEAN PLATELET VOLUME 8.2 FL (7.4-10.4); MONOCYTES # (AUTO) 0.5 X10'3 (0-0.9); MONOCYTES % (AUTO) 7.2 % (2-12); NEUTROPHILS # (AUTO) 4.6 X10'3 (1.8-7.7); NEUTROPHILS % (AUTO) 69.8 % (42-75); PLATELET COUNT 180 X10'3 (140-440); RED BLOOD COUNT 5.06 X10'6 (4.70-6.10); RED CELL DISTRIBUTION WIDTH 16.8 % (11.5-14.5); WHITE BLOOD COUNT 6.5 X10'3 (4.5-11.0)
[2019-05-10 06:37] LABS: ALANINE AMINOTRANSFERASE 10 U/L (12-78); ALBUMIN 3.2 G/DL (3.4-5.0); ALKALINE PHOSPHATASE 55 IU/L (46-116); ANION GAP 11 (8-16); ASPARTATE AMINO TRANSFERASE 10 U/L (10-37); BILIRUBIN,TOTAL 0.6 MG/DL (0.1-1.0); BLOOD UREA NITROGEN 28 MG/DL (7-18); BUN/CREATININE RATIO 19.6 (5.4-32.0); CALCIUM 8.1 MG/DL (8.5-10.1); CHLORIDE 109 MMOL/L (99-107); CREATININE 1.43 MG/DL (0.60-1.10); GLUCOSE 95 MG/DL (70-104); POTASSIUM 3.7 MMOL/L (3.5-5.1); SODIUM 142 MMOL/L (135-145); TOTAL CARBON DIOXIDE 22.1 MMOL/L (24-32); TOTAL PROTEIN 6.3 G/DL (6.4-8.2); eGFR 52 ML/MIN
[2019-05-10 06:41] LABS: CHOL/HDL RATIO 3.5 (0.00-4.99); CHOLESTEROL 174 MG/DL (0-200); HDL CHOLESTEROL 50 MG/DL (35-60); LDL CHOLESTEROL 115 MG/DL (50-100); TRIGLYCERIDES 103 MG/DL (20-135)
[2019-05-10] MEDS: gabapentin 300mg capsule PO SCH ×3 (08:32→20:22)
[2019-05-10] MEDS: lisinopril 10 MG tablet PO SCH (08:32)
[2019-05-10] MEDS: metoprolol tartrate 25mg tablet PO SCH ×2 (08:32→20:23)
[2019-05-10] MEDS: acetaminophen 325mg tablet PO PRN ×3 (08:33→22:47)
[2019-05-10] MEDS: pantoprazole 40mg Tablet.DR PO SCH (08:33)
[2019-05-10] MEDS: heparin, porcine 5000 units/ml vial SQ SCH ×2 (08:34→20:22)
--- NOTE | 2019-05-10 10:42 | NUR ---
[phone] MESSAGE: Her Adalid Rm [id number] Pt is requesting Excedrin for his head ache pain JUDSON Alfaro 3113
--- NOTE | 2019-05-10 12:16 | NUR ---
Malnutrition consult: Pt current scaled weight 68kg; on 08/09/18 scaled weight 65kg, no significant weight changes. Pt currently NPO, no current documented PO intake, however pt has hx of good PO intake averaging 75% from past visits. Pt has no edema. Pt does not currently meet the criteria for malnutrition. Addendum: 05/10/19 at 1216 by Wing Kaleigh HUMPHREY Amended: Links added. Addendum: 05/10/19 at [address] RD agree with internal communications manager note
[2019-05-10] MEDS ORDERED: metoprolol tartrate 1mg/ml inj IV PRN (14:05)
[2019-05-10] MEDS ORDERED: regadenoson 0.4mg/5ml syringe IV PRN (14:05)
[2019-05-10] MEDS ORDERED: aminophylline 250mg/10ml inj. IV PRN (14:05)
[2019-05-10] MEDS ORDERED: nitroGLYCERIN 0.4mg SUBLingual tab SL PRN (14:05)
[2019-05-10] MEDS: dextrose 5%-normal saline 1,000 ML IV SCH (14:46)
[2019-05-10 14:47] LABS: D-DIMER 0.85 MG/L FEU (0-0.50)
--- NOTE | 2019-05-10 16:38 | NUR ---
[id number] MESSAGE: MAXIME Rm [id number] Will not be able to do lung scan until tmrw because he had a Renetta today and will scew test per nuclear med JUDSON Alfaro
--- NOTE | 2019-05-10 18:32 | NUR ---
Patient in room PCU 3026. I have received report from JUDSON Abrams and had the opportunity to ask questions and assume patient care.
--- NOTE | 2019-05-10 18:52 | NUR ---
Patient in room PCU 3026. I have received report from Angelina ROPER and had the opportunity to ask questions and assume patient care.
--- NOTE | 2019-05-10 23:05 | NUR ---
pt bp is 171/100 with headache going for a week, called Dr. Macdonald he gave order to give tylenol for headache
[2019-05-11 03:21] VITALS: BP 148/92
[2019-05-11] MEDS: dextrose 5%-normal saline 1,000 ML IV SCH (05:05)
[2019-05-11 05:58] LABS: ALANINE AMINOTRANSFERASE 12 U/L (12-78); ALBUMIN 2.9 G/DL (3.4-5.0); ALKALINE PHOSPHATASE 57 IU/L (46-116); ANION GAP 8 (8-16); ASPARTATE AMINO TRANSFERASE 10 U/L (10-37); BILIRUBIN,TOTAL 0.5 MG/DL (0.1-1.0); BLOOD UREA NITROGEN 30 MG/DL (7-18); BUN/CREATININE RATIO 20.4 (5.4-32.0); CALCIUM 8.5 MG/DL (8.5-10.1); CHLORIDE 112 MMOL/L (99-107); CREATININE 1.47 MG/DL (0.60-1.10); GLUCOSE 102 MG/DL (70-104); SODIUM 144 MMOL/L (135-145); TOTAL PROTEIN 5.9 G/DL (6.4-8.2); eGFR 51 ML/MIN
[2019-05-11 06:00] VITALS: BP 150/86
[2019-05-11 06:01] LABS: BASOPHILS % (AUTO) 0.5 % (0-1); EOSINOPHILS # (AUTO) 0.3 X10'3 (0-0.9); EOSINOPHILS % (AUTO) 4.6 % (0-6); HEMOGLOBIN 12.8 g/dl (14.0-17.9); LYMPHOCYTES # (AUTO) 1.3 X10'3 (1.1-4.8); LYMPHOCYTES % (AUTO) 22.3 % (21-51); MEAN CORPUSCULAR HEMOGLOBIN 27.1 PG (27.0-31.0); MEAN CORPUSCULAR HGB CONC 32.9 g/dL (33.0-36.5); MEAN CORPUSCULAR VOLUME 82.4 FL (78-98); MEAN PLATELET VOLUME 8.4 FL (7.4-10.4); MONOCYTES # (AUTO) 0.4 X10'3 (0-0.9); MONOCYTES % (AUTO) 7.7 % (2-12); NEUTROPHILS # (AUTO) 3.6 X10'3 (1.8-7.7); NEUTROPHILS % (AUTO) 64.9 % (42-75); PLATELET COUNT 162 X10'3 (140-440); RED BLOOD COUNT 4.73 X10'6 (4.70-6.10); RED CELL DISTRIBUTION WIDTH 16.5 % (11.5-14.5); WHITE BLOOD COUNT 5.6 X10'3 (4.5-11.0)
--- NOTE | 2019-05-11 06:31 | NUR ---
Problems reprioritized. Patient report given, questions answered & plan of care reviewed with Eneida ROPER.
--- NOTE | 2019-05-11 06:53 | NUR ---
Patient in room PCU 3026. I have received report from Aliza ROPER and had the opportunity to ask questions and assume patient care.
[2019-05-11] MEDS: gabapentin 300mg capsule PO SCH ×3 (07:31→22:25)
[2019-05-11] MEDS: metoprolol tartrate 25mg tablet PO SCH ×2 (07:31→19:04)
[2019-05-11] MEDS: pantoprazole 40mg Tablet.DR PO SCH (07:31)
[2019-05-11] MEDS: lisinopril 10 MG tablet PO SCH (07:31)
[2019-05-11] MEDS: heparin, porcine 5000 units/ml vial SQ SCH ×2 (07:32→19:05)
[2019-05-11] MEDS: acetaminophen 325mg tablet PO PRN ×2 (10:34→22:25)
--- NOTE | 2019-05-11 10:43 | NUR ---
Notified by Nuclear medicine that VQ scan will be done on 05/12/19 d/t pt having a lexiscan on 05/10/19 and need to wait 2 days before doing a VQ scan per nuclear medicine.
[2019-05-11 11:00] VITALS: BP 172/101
--- NOTE | 2019-05-11 11:36 | NUR ---
Notified Dr. Bray in [facility] to PT elevated BP of 172/101 (114) HR 96, no new orders at this time, Dr. Bray states she will come see and assess patient, will continue to monitor.
[2019-05-11 15:00] VITALS: BP 171/99
[2019-05-11] MEDS ORDERED: hydrALAZINE 20mg/ml inj. IV PRN (15:40)
--- NOTE | 2019-05-11 15:40 | NUR ---
Notified Dr. Bray of BP of 171/99 HR 67, received orders to start hydralazine 10mg q6h prn for SBP > 160, will continue to monitor.
[2019-05-11] MEDS ORDERED: sodium chloride 0.45% 1,000 ML IV SCH (16:05)
[2019-05-11] MEDS: amLODIPine 5mg tablet PO SCH (16:15)
[2019-05-11 18:00] VITALS: BP 178/102
--- NOTE | 2019-05-11 18:20 | NUR ---
Patient in room U 3026. I have received report from Jonathan ROPER and had the opportunity to ask questions and assume patient care. Patient talking on the phone to his , will continue to monitor.
--- NOTE | 2019-05-11 18:41 | NUR ---
Problems reprioritized. Patient report given, questions answered & plan of care reviewed with Deborah ROPER.
[2019-05-11 22:00] VITALS: BP 165/96
[2019-05-12 03:00] VITALS: BP 154/92
[2019-05-12 05:16] LABS: BASOPHILS % (AUTO) 0.6 % (0-1); EOSINOPHILS # (AUTO) 0.3 X10'3 (0-0.9); HEMATOCRIT 40.6 % (42.0-52.0); HEMOGLOBIN 13.6 g/dl (14.0-17.9); LYMPHOCYTES # (AUTO) 1.4 X10'3 (1.1-4.8); LYMPHOCYTES % (AUTO) 20.6 % (21-51); MEAN CORPUSCULAR HEMOGLOBIN 27.2 PG (27.0-31.0); MEAN CORPUSCULAR HGB CONC 33.5 g/dL (33.0-36.5); MEAN PLATELET VOLUME 8.4 FL (7.4-10.4); MONOCYTES # (AUTO) 0.4 X10'3 (0-0.9); MONOCYTES % (AUTO) 6.3 % (2-12); NEUTROPHILS # (AUTO) 4.6 X10'3 (1.8-7.7); NEUTROPHILS % (AUTO) 68.5 % (42-75); PLATELET COUNT 166 X10'3 (140-440); RED BLOOD COUNT 5.02 X10'6 (4.70-6.10); RED CELL DISTRIBUTION WIDTH 16.8 % (11.5-14.5); WHITE BLOOD COUNT 6.7 X10'3 (4.5-11.0)
[2019-05-12 05:24] LABS: ALANINE AMINOTRANSFERASE 10 U/L (12-78); ALBUMIN 3.1 G/DL (3.4-5.0); ALBUMIN/GLOBULIN RATIO 0.9 (1.1-1.5); ALKALINE PHOSPHATASE 56 IU/L (46-116); ANION GAP 9 (8-16); ASPARTATE AMINO TRANSFERASE 11 U/L (10-37); BILIRUBIN,TOTAL 0.5 MG/DL (0.1-1.0); BLOOD UREA NITROGEN 25 MG/DL (7-18); BUN/CREATININE RATIO 17.2 (5.4-32.0); CALCIUM 8.7 MG/DL (8.5-10.1); CHLORIDE 110 MMOL/L (99-107); CREATININE 1.45 MG/DL (0.60-1.10); GLUCOSE 89 MG/DL (70-104); POTASSIUM 3.5 MMOL/L (3.5-5.1); SODIUM 142 MMOL/L (135-145); TOTAL CARBON DIOXIDE 23.4 MMOL/L (24-32); TOTAL PROTEIN 6.4 G/DL (6.4-8.2); eGFR 52 ML/MIN
[2019-05-12 06:00] VITALS: BP 134/77
--- NOTE | 2019-05-12 06:22 | NUR ---
Patient in room PCU 3026. I have received report from Deborah ROPER and had the opportunity to ask questions and assume patient care.
--- NOTE | 2019-05-12 06:23 | NUR ---
Problems reprioritized. Patient report given, questions answered & plan of care reviewed with Jonathan ROPER.
[2019-05-12] MEDS: gabapentin 300mg capsule PO SCH ×2 (08:05→12:52)
[2019-05-12] MEDS: pantoprazole 40mg Tablet.DR PO SCH (08:05)
[2019-05-12] MEDS: amLODIPine 5mg tablet PO SCH (08:06)
[2019-05-12] MEDS: metoprolol tartrate 25mg tablet PO SCH (08:06)
[2019-05-12] MEDS: lisinopril 10 MG tablet PO SCH (08:06)
[2019-05-12] MEDS: heparin, porcine 5000 units/ml vial SQ SCH (08:07)
--- NOTE | 2019-05-12 08:18 | NUR ---
Pt saline locked at this time, transported via wheelchair off unit for VQ scan. Pt off unit in stable condition, telephone directory distributor driver aware.
[2019-05-12 11:00] VITALS: BP 142/80
[2019-05-12] MEDS ORDERED: NOR5T PO (12:25)
--- NOTE | 2019-05-12 13:45 | NUR ---
Pt is stable for discharge per md orders, discharge instructions reviewed w/ pt all questions answered, [facility] [place] per pt preference, tele monitor 35 removed and returned, PIV dc'ed and clean dry dressing in place, pt will discharge from unit @ 1335, wheeled down to [facility] w/ hospital staff, pt transferred to private vehicle w/ , all belongings w/ pt at time of discharge.
[2019-05-16 15:47] LABS: OCCULT BLOOD STOOL NEGATIVE (Neg)
== END 2019-05-12 13:35 | disposition home or self-care (01) | DRG 199 ==
LOC: ER 17:27 → ED HOLD 23:46 → PCU 3S 05-10 00:17
PROVIDERS: ADMIT Internal Medicine; ATTEND Internal Medicine
PROC: 4A02XM4 Measurement of Cardiac Total Activity, External Approach (ICD-10-PCS; principal; 2019-05-10)
PROC: 3E033HZ Introduction of Radioactive Substance into Peripheral Vein, Percutaneous Approach (ICD-10-PCS; 2019-05-10)
PROC: CB121ZZ Planar Nuclear Medicine Imaging of Lungs and Bronchi using Technetium 99m (Tc-99m) (ICD-10-PCS; 2019-05-12)
DX: I16.0 Hypertensive urgency (principal); N17.9 Acute kidney failure, unspecified; R07.89 Other chest pain; F32.9 Major depressive disorder, single episode, unspecified; K21.9 Gastro-esophageal reflux disease without esophagitis; I12.9 Hypertensive chronic kidney disease with stage 1 through stage 4 chronic kidney disease, or unspecified chronic kidney disease; N18.9 Chronic kidney disease, unspecified; M10.9 Gout, unspecified; Z79.899 Other long term (current) drug therapy; Z82.49 Family history of ischemic heart disease and other diseases of the circulatory system; Z87.11 Personal history of peptic ulcer disease; Z91.013 Allergy to seafood
CPT/HCPCS: 36415; 71045; 78452; 78582; 80053; 80061; 80305; 80320; 82272; 83036; 83735; 83880; 84484; 85025; 85379; 87081; 93005; 93017; 99285; A9500; A9539; A9540; G0378; J0280; J0360; J1644; J2785; J7042

== ENCOUNTER 2021-03-22 14:18 | Emergency (ER) | payer MEDICAID ==
[~2021-03-22] VITALS: Ht 162.6 cm; Wt 65.0 kg
[~2021-03-22 14:18] MED LIST changes: -ATOR40TA72 PO; -CITA20TA27 PO; -FERR325T32 PO; -LEVO100T PO; +LISI10TA27 PO; +LOP25T PO; -MAGN400C PO; -METO25TA6 PO; +NOR5T PO; -OLAN10TA19 PO; +OLAN10TA73 PO; +PANT-47 PO; -PANT40TA4 PO; +TRIA15OI9 TOP; -VITA-268 PO
[2021-03-22] MEDS ORDERED: LORazepam 2 mg/ml vial IV ONE (14:40)
[2021-03-22 14:50] LABS: BASOPHILS % (AUTO) 0.4 % (0-1); EOSINOPHILS % (AUTO) 0.1 % (0-6); HEMATOCRIT 41.6 % (42.0-52.0); HEMOGLOBIN 13.7 g/dl (14.0-17.9); LYMPHOCYTES # (AUTO) 0.4 X10'3 (1.1-4.8); LYMPHOCYTES % (AUTO) 5.6 % (21-51); MEAN CORPUSCULAR HEMOGLOBIN 26.9 PG (27.0-31.0); MEAN CORPUSCULAR HGB CONC 32.9 g/dL (33.0-36.5); MEAN CORPUSCULAR VOLUME 81.8 FL (78-98); MEAN PLATELET VOLUME 7.5 FL (7.4-10.4); MONOCYTES # (AUTO) 0.1 X10'3 (0-0.9); NEUTROPHILS # (AUTO) 6.6 X10'3 (1.8-7.7); NEUTROPHILS % (AUTO) 92.9 % (42-75); PLATELET COUNT 272 X10'3 (140-440); RED BLOOD COUNT 5.08 X10'6 (4.70-6.10); WHITE BLOOD COUNT 7.1 X10'3 (4.5-11.0)
[2021-03-22] MEDS ORDERED: tranexamic acid 1gm/0.7% sal. 100 ML IV ONE (14:55)
[2021-03-22 14:58] LABS: PARTIAL THROMBOPLASTIN TIME 30 SECONDS (22-32)
[2021-03-22 15:00] LABS: ALANINE AMINOTRANSFERASE 15 U/L (12-78); ALBUMIN 3.2 G/DL (3.4-5.0); ALBUMIN/GLOBULIN RATIO 0.8 (1.1-1.5); ALKALINE PHOSPHATASE 92 IU/L (46-116); ANION GAP 12 (8-16); ASPARTATE AMINO TRANSFERASE 8 U/L (10-37); BILIRUBIN,TOTAL 0.6 MG/DL (0.1-1.0); BLOOD UREA NITROGEN 31 MG/DL (7-18); BUN/CREATININE RATIO 16.7 (5.4-32.0); CALCIUM 8.8 MG/DL (8.5-10.1); CHLORIDE 108 MMOL/L (99-107); CREATININE 1.86 MG/DL (0.60-1.10); GLUCOSE 167 MG/DL (70-104); POTASSIUM 4.3 MMOL/L (3.5-5.1); SODIUM 144 MMOL/L (135-145); TOTAL PROTEIN 7.3 G/DL (6.4-8.2); eGFR 38 ML/MIN
[2021-03-22] MEDS ORDERED: niCARDipine-NS 40mg/200ml IVPB 200 ML IV SCH (15:00)
[2021-03-22 15:02] LABS: TROPONIN I < 0.04 NG/ML (0.0-0.05)
[2021-03-22] MEDS ORDERED: GABA300C PO (15:12)
[2021-03-22] MEDS ORDERED: METO-384 PO (15:12)
[2021-03-22] MEDS ORDERED: LORA2TAB96 PO (15:12)
[2021-03-22] MEDS ORDERED: OLAN10TA3 PO (15:12)
[2021-03-22 16:38] LABS: CLARITY,URINE CLEAR (Clear); COLOR,URINE YELLOW (Yellow); GLUCOSE, URINE NEGATIVE (Neg); KETONES,URINE NEGATIVE (Neg); LEUKOCYTE ESTERASE ,URINE NEGATIVE (Neg); NITRITES, URINE NEGATIVE (Neg); OCCULT BLOOD,URINE NEGATIVE (Neg); PROTEIN,URINE NEGATIVE (Neg); UA COLLECTION TYPE VOIDED; UROBILINOGEN,URINE 0.2 E.U/dL (0.2-1.0)
[2021-03-22 16:48] LABS: URINE AMPHETAMINE SCREEN POSITIVE (Neg); URINE BARBITUATE SCREEN NEGATIVE (Neg); URINE BENZODIAZEPINES SCREEN NEGATIVE (Neg); URINE CANNABINOID SCREEN NEGATIVE (Neg); URINE COCAINE SCREEN NEGATIVE (Neg); URINE METHADONE SCREEN NEGATIVE (Neg); URINE OPIATE SCREEN NEGATIVE (Neg); URINE PHENCYCLIDINE SCREEN NEGATIVE (Neg)
--- NOTE | 2021-03-22 16:55 | NUR ---
CONTACT NUMBER FOR :
--- NOTE | 2021-03-22 17:25 | NUR ---
PATIENT TOOK OFF BLOOD PRESSURE CUFF AND STATES IT IS "HURTING HIS ARM". PATIENT INFORMED THAT FREQUENT BLOOD PRESSURE IS NEEDED IN ORDER TO CONTROL HIS MEDICATION THAT IS INFUSING AT PRESENT (CARDENE). PATIENT IS RESTLESS, BUT TRYING TO BE COOPERATIVE. PATIENT REFUSES TO SIGN CONSENT FOR TRANSFER TO [facility] IN [place], [place]. DR. PRATER SPOKE WITH PATIENT AND PATIENT'S FAMILY MEMBERS. FAMILY STATES THAT HE HAS BEEN TALKING ABOUT WANTING TO , BUT THEY WANT HIM TO GET THE APPROPRIATE CARE AVAILABLE.
--- NOTE | 2021-03-22 18:00 | NUR ---
[facility] IS HERE TO TRANSFER PATIENT TO [facility] IN [place]. REPORT GIVEN TO TEAM AND ALSO CALLED TO [facility] IN [place]. PATIENT PREPARING FOR TRANSFER.
--- NOTE | 2021-03-22 18:15 | NUR ---
PATIENT DEPARTED FROM ER, PER MICHELLE, WITH FLIGHT TEAM, IN STABLE BUT SERIOUS CONDITION.
[2021-03-22 19:13] VITALS: BP 135/103
== END 2021-03-22 18:30 | disposition short-term general hospital (02) ==
LOC: ER 14:19
DX: I62.9 Nontraumatic intracranial hemorrhage, unspecified (principal); F15.10 Other stimulant abuse, uncomplicated; I10 Essential (primary) hypertension; K21.9 Gastro-esophageal reflux disease without esophagitis; F32.9 Major depressive disorder, single episode, unspecified; Z88.8 Allergy status to other drugs, medicaments and biological substances; Z79.899 Other long term (current) drug therapy; Z20.822 Contact with and (suspected) exposure to COVID-19
CPT/HCPCS: 36415; 70450; 71045; 80053; 80305; 81003; 84145; 84484; 85025; 85610; 85730; 87635; 93005; 96365; 96366; 96368; 99291; C9803; J2997